=== PATIENT | female | born 1985 | race Caucasian/White ===

== ENCOUNTER 2017-07-20 14:44 | Outpatient (CLI) | payer OTHER ==
--- NOTE | 2017-07-20 16:22 | ULT ---
SOFT TISSUE SONOGRAM LEFT LABIA: FINDINGS: Sonographic evaluation of the left labial abnormality shows a well circumscribed but lobulated heter ogeneous, predominantly hypoechoic mass, measuring up to 4 cm in length x 1.9 cm in width x 1.2 cm i n depth. No invasion of the deep tissues is apparent. IMPRESSION: Left labial lesion does not have a simple cystic appearance, with internal flow and solid components apparent. Neoplasm is a primary concern. Please consider gynecologic consultation. POS: HEIDE
== END 2017-07-20 14:45 | disposition home or self-care (01) ==
LOC: ULT 14:44
PROVIDERS: ATTEND Student in an Organized Health Care Education/Training Program
DX: N75.0 Cyst of Bartholin's gland (principal); N90.9 Noninflammatory disorder of vulva and perineum, unspecified
CPT/HCPCS: 76999

== ENCOUNTER 2017-09-18 18:41 | Day surgery (SDC) | payer OTHER ==
[2017-09-18 19:21] VITALS: BP 123/86; TEMP 98.5; BMI 42.8
[2017-09-18 19:56] LABS: Amnisure Test No Membranes Rupture (No Rupture)
[2017-09-18 19:57] LABS: Amnisure Internal Control QC ACCEPTABLE (ACCEPTABLE)
--- NOTE | 2017-09-18 20:19 | PDOC.LDHP ---
Labor and Delivery H&P Chief complaint: loss of fluid HPI: 32 y/o at 37w3d, patient of Dr. De La Cruz at [facility], presents with ?LOF. She reports a change in her discharge to a more clear color and some itching. Denies VB, ctx, or decreased FM. Patient refuses to have any males in the room and only male attending available for [facility]. ROS neg for HEENT, cv, pulm, gi, gu, neuro, psych, skin, musculoskeletal, or constitutional symptoms other than mentioned above. OB History Details: 2 prior SVDs, 1 at 36 weeks, other at term. Current complications: none Past Medical History: Sinus tachycardia, seen by cardiology Current medications: pre- vitamins Previous surgical history: other (tonsils and adenoids) Allergies/Adverse Reactions: Allergies Allergy/AdvReac Type Severity Reaction Status Date / Time loratadine [From Claritin-D] Allergy Anxiety Verified 09/18/17 19:22 pseudoephedrine Allergy Anxiety Verified 09/18/17 19:22 [From Claritin-D] Social history: none - Physical Exam Vital signs reviewed and normal: yes Abnormal vital signs: tachycardia General: NAD, resting Lungs: nonlabored breathing Abdomen: gravid Extremeties: no edema FHT: category 1 (125, mod variability, + accels, no decels) [place] contractions every: occasional - OB Labs Additional Labs: Amnisure negative - Assessment 32 y/o G1 at 37w3d with no e/o SROM. status reassuring with reactive NST. - Plan -: D/c home with precautions. VP3 pending. Will call if treatment is required.
== END 2017-09-18 20:40 | disposition home or self-care (01) ==
LOC: L&D/OP 18:41
PROVIDERS: ATTEND Student in an Organized Health Care Education/Training Program
DX: O99.89 Other specified diseases and conditions complicating pregnancy, childbirth and the puerperium (principal); N89.8 Other specified noninflammatory disorders of vagina; Z3A.37 37 weeks gestation of pregnancy; Z79.899 Other long term (current) drug therapy; Z88.8 Allergy status to other drugs, medicaments and biological substances; Z90.89 Acquired absence of other organs; Z87.891 Personal history of nicotine dependence
CPT/HCPCS: 84112; 87480; 87510; 87660; 99283

== ENCOUNTER 2017-10-01 12:08 | Day surgery (SDC) | payer OTHER ==
[2017-10-01 12:41] VITALS: BMI 43.4
[2017-10-01] MEDS ORDERED: Acetaminophen 500 MG TAB PO SCH (13:45)
== END 2017-10-01 15:35 | disposition home or self-care (01) ==
LOC: L&D/OP 12:08
PROVIDERS: ATTEND Student in an Organized Health Care Education/Training Program
DX: O99.89 Other specified diseases and conditions complicating pregnancy, childbirth and the puerperium (principal); R03.0 Elevated blood-pressure reading, without diagnosis of hypertension; O36.63X0 Maternal care for excessive fetal growth, third trimester, not applicable or unspecified; Z3A.38 38 weeks gestation of pregnancy; Z79.899 Other long term (current) drug therapy; Z88.8 Allergy status to other drugs, medicaments and biological substances; Z90.89 Acquired absence of other organs; Z87.891 Personal history of nicotine dependence
CPT/HCPCS: 99282

== ENCOUNTER 2017-10-04 10:16 | Inpatient (IN) | payer OTHER ==
[2017-10-04] MEDS ORDERED: PHENYLEPHRINE-NS 100 MCG/ML 10 ML SYRINGE ONE ×3 (10:29→23:30)
[2017-10-04] MEDS ORDERED: Ondansetron HCl/PF 4 MG/2 ML Vial ONE ×2 (10:29→22:41)
[2017-10-04] MEDS ORDERED: Lidocaine 2% MPF 10 ML AMP (For Epidural Use) ONE (10:29)
[2017-10-04 11:05] LABS: Amnisure Test RUPTURE DETECTED (No Rupture)
[2017-10-04 11:06] LABS: Amnisure Internal Control QC ACCEPTABLE (ACCEPTABLE)
[2017-10-04] MEDS ORDERED: Ondansetron HCl/PF 4 MG/2 ML Vial IVP PRN ×4 (11:29→23:48)
[2017-10-04] MEDS ORDERED: Promethazine HCl 25 MG/ML VIAL IM PRN ×3 (11:29→23:48)
[2017-10-04] MEDS: Lactated Ringer's 1,000 ML IV SCH ×3 (11:30→17:16)
[2017-10-04] MEDS ORDERED: Lidocaine 1% (PF) 30 ML VIAL SC PRN (11:32)
[2017-10-04] MEDS ORDERED: LR / Pitocin 40 units/1000 ml 1,000 ML IV PRN (11:32)
[2017-10-04] MEDS ORDERED: Ibuprofen 800 MG TAB PO PRN (11:32)
[2017-10-04 11:39] LABS: Hemoglobin 12.2 g/dL (12.0-16.0); Mean Corpuscular HGB CONC 32.8 g/dL (32.0-36.0); Mean Corpuscular Hemoglobin 29.3 pg (27.0-31.0); Mean Corpuscular Volume 89.4 fl (81.0-99.0); Mean Platelet Volume 8.8 fL (7.4-10.4); Platelet Count 196 thou/uL (130-400); RBC Distribution Width 13.2 % (11.5-14.5); Red Blood Cell (RBC) Count 4.16 mill/uL (4.20-5.40); White Blood Cell (WBC) Count 9.6 thou/uL (4.8-10.8)
[2017-10-04] MEDS ORDERED: Penicillin G Potassium 5 MILL.UNITS VIAL ONE (11:46)
[2017-10-04] MEDS ORDERED: Fentanyl 4 mcg/Marc 0.1% Cadd 100 ML ONE (11:46)
[2017-10-04] MEDS ORDERED: Penicillin G Potassium 5 MILL.UNITS in Sodium Chloride 0.9% 100 ML IVPB SCH (12:15)
[2017-10-04 12:20] LABS: HBSAg Index 0.09 S/CO (0-0.99); Hep B Surf Ag Non-Reactive S/CO (NonReactive)
[2017-10-04 12:21] VITALS: BMI 43.4
[2017-10-04 12:21] LABS: Syphilis Antibody Nonreactive (Nonreactive); Syphilis Antibody Index 0.04 S/CO (<1.00 Non-Reactive)
[2017-10-04] MEDS ORDERED: Lactated Ringer's 500 ML IV PRN (13:41)
[2017-10-04] MEDS ORDERED: Naloxone HCl 0.4 mg/ml Vial IVP PRN ×4 (13:41→23:48)
[2017-10-04] MEDS ORDERED: Acetaminophen 325 MG TAB PO PRN (13:41)
[2017-10-04] MEDS ORDERED: Eucerin (Mineral Oil/Petrolatum,White) 30 gm Jar TOP PRN ×2 (13:41→23:48)
[2017-10-04] MEDS ORDERED: Communication Order-Pharmacy FS SCH ×2 (13:45→23:45)
[2017-10-04] MEDS ORDERED: Fentanyl 4mcg/Marcaine 0.1% Cassette 100 ML EPIDURAL SCH (13:45)
--- NOTE | 2017-10-04 13:58 | PDOC.LDPN ---
Labor & Delivery Progress Note - Subjective Subjective: comfortable - Objective Vital signs reviewed and normal: yes Abnormal vital signs: Tachycardic General: NAD, resting Uterine fundus: non tender SVE: 13:19 Dilation: 3.5 Effacement: 75% (80) Station: -2 FHT: category 1, variability present [place] contractions every: q5min - Assessment (1) Term Code(s): Z34.80 - ENCOUNTER FOR SUPRVSN OF NORMAL , UNSP TRIMESTER Current Visit: Yes Status: Acute Comment: 32 y/o @ 39.0 weeks presents to L&D due to SROM at 06:45 this AM -Expectant management -SVE 3.5/80/-2; no change in dilation from prior exam -Contractions have spread out; pitocin started -Recheck in 2 hours (2) Spontaneous rupture of amniotic membranes Code(s): SMB7965 - Current Visit: Yes Status: Acute Comment: -SROM @ 06: 45 AM Plan: continue plan of care, pitocin for augmentation
[2017-10-04] MEDS ORDERED: LR 500 ML/Oxytocin 10 units 500 ML IV SCH (14:00)
[2017-10-04] MEDS: Penicillin G 2.5 MILL.units 2.5 MILL.UNITS in Premix Bag 1 BAG IVPB SCH ×2 (15:59→20:10)
--- NOTE | 2017-10-04 16:02 | PDOC.LDPN ---
Labor & Delivery Progress Note - Subjective Subjective: comfortable - Objective Vital signs reviewed and normal: yes General: NAD Uterine fundus: tender to palpation SVE: 16:00 Dilation: 7 Effacement: 90% Station: -1 FHT: category 1, variability present [place] contractions every: q2-3 min - Assessment (1) Term Code(s): Z34.80 - ENCOUNTER FOR SUPRVSN OF NORMAL , UNSP TRIMESTER Current Visit: Yes Status: Acute Comment: 32 y/o @ 39.0 weeks presents to L&D due to SROM at 06:45 this AM -Expectant management -SVE /-1 -Pitocin at 6 -Recheck when feeling pressure or q2h (2) Spontaneous rupture of amniotic membranes Code(s): IXB7690 - Current Visit: Yes Status: Acute Comment: -SROM @ 06: 45 AM Plan: continue plan of care
--- NOTE | 2017-10-04 18:39 | PDOC.LDPN ---
Labor & Delivery Progress Note - Subjective Subjective: comfortable - Objective Vital signs reviewed and normal: yes Abnormal vital signs: Tachycardic General: NAD, resting Uterine fundus: non tender SVE: 17:45 Dilation: 9.5 Effacement: 90% Station: -1 FHT: category 1, variability present [place] contractions every: q3 min - Assessment (1) Term Code(s): Z34.80 - ENCOUNTER FOR SUPRVSN OF NORMAL , UNSP TRIMESTER Current Visit: Yes Status: Acute Comment: 32 y/o @ 39.0 weeks presents to L&D due to SROM at 06:45 this AM -Expectant management -SVE 9.5/95/-1 @ 17:45 -Pitocin at 8 -Recheck in 1 hour (2) Spontaneous rupture of amniotic membranes Code(s): SRT6289 - Current Visit: Yes Status: Acute Comment: -SROM @ 06: 45 AM Plan: continue plan of care <Kaylan Galvan - Last Filed: 10/04/17 18:37> Attending Addendum - Attending Addendum I personally evaluated the patient and discussed the management with Dr. Galvan I agree with the History, Examination, Assessment and Plan documented above with any addition or exceptions noted below. Dr. Burton planned to be delivering doctor as patient prefers female provider. <Tejas Mckeon - Last Filed: 10/04/17 18:45>
--- NOTE | 2017-10-04 22:23 | PDOC.LDPN ---
Labor & Delivery Progress Note - Objective Abnormal vital signs: Baseline tachycardia. Vitals otherwise WNL General: NAD Uterine fundus: non tender Station: -1 FHT: category 2, variable decelerations, variability present [place] contractions every: 2-3 min Resuscitative measures: maternal IV fluids - Assessment (1) Arrested labor Code(s): O62.1 - SECONDARY UTERINE INERTIA Status: Acute Comment: Pt pushing for 1.5 hrs without descent past -1 station. Has been at -1 station for 9 hrs despite adequate contractions. Cat II tracing for variable decels with intermittent tachycardia. Appears to be in occiput posterior presentation on bedside ultrasound although examination difficult due to position and maternal body habitus. Decision made to proceed with primary section for arrest of descent and OP presentation. Risk, benefits and alternatives to delivery, including but not limited to risk of bleeding, infection, damage to structures surrounding the uterus and need for hysterectomy for life saving purposes were discussed in detail with patient and . All questions were answered and the both patient and are in agreeance with plan. -Lee DO -: Patient seen with Dr. Burton and will proceed with for arrest of descent and persistent OP position.
[2017-10-04] MEDS ORDERED: Bicitra 30 ML UDCUP ONE ×2 (22:24)
[2017-10-04] MEDS ORDERED: CEFAZOLIN/Water 2 GM/20 ML SYRINGE ONE (22:24)
[2017-10-04] MEDS ORDERED: Lidocaine 2% PF 5 ML VIAL ONE ×2 (22:33→22:53)
[2017-10-04] MEDS ORDERED: Bupivacaine/Epinephrine 0.5% 10 ML VIAL ONE (22:34)
[2017-10-04] MEDS ORDERED: Oxytocin 10 UNITS/ML VIAL ONE (22:41)
[2017-10-04] MEDS ORDERED: Morphine PF 1 MG/ML SYR ONE (23:20)
[2017-10-04] MEDS ORDERED: Ketorolac Tromethamine 30 MG/ML VIAL IVP SCH (23:45)
[2017-10-04] MEDS ORDERED: Meperidine HCl/PF 25 MG/ML VIAL SLOW IVP PRN (23:48)
[2017-10-04] MEDS ORDERED: Naloxone HCl 0.4 mg/ml Vial IV PRN (23:48)
[2017-10-04] MEDS ORDERED: diphenhydrAMINE 50 MG/ML VIAL IVP PRN (23:48)
[2017-10-04] MEDS ORDERED: Promethazine HCl 25 MG SUPP PR PRN (23:48)
[2017-10-04] MEDS ORDERED: HYDROmorphone 2 MG/ML VIAL SLOW IVP PRN (23:48)
[2017-10-05] MEDS ORDERED: Lidocaine 2% PF 5 ML VIAL ONE (00:01)
[2017-10-05] MEDS ORDERED: LR w/ Pitocin 40 units/1000 ML BAG IV SCH (01:57)
[2017-10-05] MEDS ORDERED: Bisacodyl 10 MG SUPP PR PRN (01:57)
[2017-10-05] MEDS ORDERED: Adacel (T-DAP) 0.5 ML VIAL IM ONE (02:15)
[2017-10-05] MEDS ORDERED: Meperidine HCl/PF 25 MG/ML VIAL ONE (02:46)
[2017-10-05 05:40] LABS: Hemoglobin 10.3 g/dL (12.0-16.0); Mean Corpuscular HGB CONC 33.5 g/dL (32.0-36.0); Mean Corpuscular Hemoglobin 30.3 pg (27.0-31.0); Mean Corpuscular Volume 90.5 fl (81.0-99.0); Platelet Count 184 thou/uL (130-400); RBC Distribution Width 13.4 % (11.5-14.5); White Blood Cell (WBC) Count 16.2 thou/uL (4.8-10.8)
--- NOTE | 2017-10-05 07:23 | PDOC.PP ---
Post Progress Note Post Day #: 1 Subjective: Patient doing well this AM. No significant overnight events. Advancing diet as tolerated. Has yet to ambulate. Pain moderately controlled. PO intake tolerated: yes Flatus: no Ambulation: no Vital Signs (12 hours) Temp Pulse Resp BP Pulse Ox 10/05/17 05:50 98.1 F 116 H 20 105/56 L 10/05/17 04:50 98.1 F 118 H 20 109/62 10/05/17 03:50 98.1 F 127 H 20 130/76 10/05/17 03:30 98.1 F 127 H 20 10/05/17 03:20 98.2 F 130 H 20 116/64 96 10/04/17 19:58 97.9 F 98 20 Weight Weight 111.13 kg - Physical Examination General: NAD Cardiovascular: no m/r/g Deviation from normal: Tachycardic 110's Respiratory: clear to auscultation bilaterally, non-labored breathing Abdominal: + bowel sounds, lochia (wnl), no distention, appropriately TTP Fundus firm & at: umbilicus Extremities: negative homans (B) Skin: CS incision dry & intact (New, clean dressing was in place), no rash Neurological: no gross focal deficits Psychiatric: A&Ox3, normal affect Result Diagrams: 10/05/17 05:13 Additional Labs: Post Labs Blood Type AB POSITIVE 10/04/17 11:20 Hep Bs Antigen Non-Reactive S/CO (NonReactive) 10/04/17 11:20 (1) Term delivered Code(s): O80 - ENCOUNTER FOR FULL-TERM UNCOMPLICATED DELIVERY Status: Acute Comment: 32 y/o @ 39.0 weeks delivered MARK M on 10/04/2017 via pLTCS for arrest of descent -Infant in OP position -Patient doing well this AM -Encourage ambulation -Contraception: opting for vasectomy -PCP: Undetermined; will provide patient with list of pediatricians -Routine care -Incision dressing recently placed; clean and dry (2) Arrest of descent, delivered, current hospitalization Code(s): O62.1 - SECONDARY UTERINE INERTIA Status: Acute Comment: - Delivered via pLTCS on 10/04/2017 -Infant in OP position -Uterine extension requiring repair; hemostatic -Incision dressing recently change; clean and dry (3) GBS (group B streptococcus) infection Code(s): A49.1 - STREPTOCOCCAL INFECTION, UNSPECIFIED SITE Status: Acute Comment: -Patient was adequately treated for vaginally delivery, but ended up delivering via pLTCS for failure of descent <Kaylan Galvan - Last Filed: 10/05/17 10:29> Vital Signs (12 hours) Temp Pulse Resp BP Pulse Ox 10/05/17 08:00 99 F 129 H 18 101/49 L 10/05/17 05:50 98.1 F 116 H 20 105/56 L 10/05/17 04:50 98.1 F 118 H 20 109/62 10/05/17 03:50 98.1 F 127 H 20 130/76 10/05/17 03:30 98.1 F 127 H 20 10/05/17 03:20 98.2 F 130 H 20 116/64 96 Weight Weight 111.13 kg Result Diagrams: 10/05/17 05:13 Additional Labs: Post Labs Blood Type AB POSITIVE 10/04/17 11:20 Hep Bs Antigen Non-Reactive S/CO (NonReactive) 10/04/17 11:20 (1) Arrested labor Code(s): O62.1 - SECONDARY UTERINE INERTIA Status: Acute Comment: Pt pushing for 1.5 hrs without descent past -1 station. Has been at -1 station for 9 hrs despite adequate contractions. Cat II tracing for variable decels with intermittent tachycardia. Appears to be in occiput posterior presentation on bedside ultrasound although examination difficult due to position and maternal body habitus. Decision made to proceed with primary section for arrest of descent and OP presentation. Risk, benefits and alternatives to delivery, including but not limited to risk of bleeding, infection, damage to structures surrounding the uterus and need for hysterectomy for life saving purposes were discussed in detail with patient and . All questions were answered and the both patient and are in agreeance with plan. -Lee LOGAN <Lucie Rosa - Last Filed: 10/05/17 12:17> Attending Addendum - Attending Addendum I personally evaluated the patient and discussed the management with Dr. Galvan I agree with the History, Examination, Assessment and Plan documented above with any addition or exceptions noted below- Patient without complaints. Pain controlled. Tolerating ice chips. Afebrile VSS U/O 400 mL since arrival to till am. A/P: 1) POD #1 s/p 1* C/section for FTD- H/H stable; advance diet as tolerated; start ambulation. <Lucie Rosa - Last Filed: 10/05/17 12:17>
[2017-10-05] MEDS: Ketorolac Tromethamine 30 MG/ML VIAL IVP PRN ×2 (07:35→14:10)
--- NOTE | 2017-10-05 08:32 | PDOC.EVN ---
Event Note - Event Note Event Note: Was called that patient had area of her incision that was no longer intact. Upon evaluation, the patient had a one cm region on the left lateral aspect of the incision that was no longer sutured in place. The patient reported that she had felt itchy and been scratching down there, so she was concerned she may have messed it up. The integrity of the wound closure was still intact. I placed steri strips across the open region and put a few extras to reinforce the rest of the incision. I informed the patient that it was important to not mess with the incision. <Awa Dave - Last Filed: 10/05/17 08:32> Attending Addendum - Attending Addendum Discussed with Dr. Dave. No s/s of fascial dehiscence. Patient was scratching the area when it came open. Reassess in AM. <Tejas Mckeon - Last Filed: 10/08/17 09:32>
[2017-10-05] MEDS: Prenatal Vitamin 1 TAB PO SCH (09:17)
[2017-10-05] MEDS: Docusate Calcium (SURFAK) 240 MG CAP PO SCH ×2 (09:17→19:47)
[2017-10-05] MEDS: Ferrous Sulfate 325 MG TAB PO SCH (09:20)
[2017-10-05] MEDS ORDERED: Sodium Chloride 0.9% 10 ML ONE (14:05)
[2017-10-05] MEDS ORDERED: Bupivacaine/Epinephrine 0.25% 30 ML VIAL ONE (16:24)
[2017-10-05] MEDS ORDERED: Lidocaine 2% MPF 10 ML AMP (For Epidural Use) ONE (16:24)
[2017-10-05] MEDS: Ibuprofen 800 MG TAB PO SCH (19:47)
--- NOTE | 2017-10-05 23:43 | OP ---
PREOPERATIVE DIAGNOSES: 1. Intrauterine at 39 weeks' gestation. 2. Arrest of descent. 3. Persistent occiput posterior position. POSTOPERATIVE DIAGNOSES: 1. Intrauterine at 39 weeks' gestation. 2. Arrest of descent. 3. Persistent occiput posterior position. 4. 4 cm right inferolateral hysterotomy extension PROCEDURE: Primary low transverse section via Pfannenstiel skin incision. SURGEON: Diana Burton D.O. ASSISTANTS: Lucie Rosa M.D., Kaylan Galvan DO, Stephanie Khan M.D. ANESTHESIA: Epidural. COMPLICATION: None. ESTIMATED BLOOD LOSS: 1500 mL FLUIDS: 300 mL URINE OUTPUT: 500 mL of clear urine at the end of the procedure. INDICATION: Arrest of descent at -1 station and persistent occiput posterior position. Ms Preciado pushed for 1-1/2 hours without descent past -1 station. On ultrasound, baby was noted to be in the occiput posterior position and decision was made to proceed with primary section. Risks, benefits, and alternatives to delivery, including but not limited to risk of bleeding, infection, pain, damage to structures surrounding the uterus and need for hysterectomy for life-saving purposes only were explained to the patient and her . All questions were answered and patient and were in agreement with the plan to proceed with delivery. FINDINGS: Male infant in occiput posterior presentation delivered at 23:09 on 10/04/2017. APGARS 8/9. Minimal amniotic fluid, weight 3645 grams. Normal uterus, tubes, and ovaries bilaterally. DESCRIPTION OF PROCEDURE: After informed consent was obtained, the patient was taken to the operating room where epidural anesthesia was found to be adequate. She was then prepped and draped in normal sterile fashion in the dorsal supine position with a leftward tilt. A Pfannenstiel skin incision was made with scalpel and carried through to the underlying layer of fascia. The fascia was incised in the midline. The incision was extended laterally using blunt dissection. The superior aspect of the fascial incision was then grasped with Maryjane clamps and the rectus muscles were dissected off bluntly. The inferior aspect of the fascial incision was, in a similar fashion, grasped with Maryjane clamps and the rectus muscles were dissected off bluntly. The rectus muscles were then in the midline and the peritoneum was identified and entered bluntly. This incision was then extended laterally. The bladder blade was inserted and a bladder flap was created using Metzenbaum scissors and blunt dissection. The bladder blade was then readjusted. The lower uterine segment was incised in a transverse fashion with the scalpel. The uterine incision was then bluntly extended. The bladder blade was removed and the 's head was delivered atraumatically. The cord was clamped and cut. was handed off to the waiting pediatrics team. The placenta was then removed manually. The uterus was exteriorized and cleared of all clots and debris. At that time, a 4 cm right inferolateral extension of the hysterotomy was noted. The extension was repaired using 1-0 Monocryl in a running locked fashion. The remainder of the hysterotomy was then closed using the same suture in a running locked fashion. A second layer of the same suture was used to imbricate and obtain hemostasis. Two areas of bleeding were noted at the left lateral hysterotomy edge. Two [id number] stitches were placed using 1-0 Monocryl with hemostasis. The uterus was then returned to the abdomen. The gutters were cleared of all clots and debris. The hysterotomy was again visualized and the area of the hysterotomy extension on the right side was noted to be bleeding. The uterus was again exteriorized and it is noted that the apex of the extension was not incorporated into the repair. This was subsequently repaired using 1-0 Monocryl in a running locked fashion with hemostasis noted. The uterus was returned to the abdomen and the right hysterotomy edge was visualized again and noted to be hemostatic. The muscle was closed using 0 Vicryl in a single mattress stitch. The fascia was closed in a running fashion using 0 Vicryl. The subcuticular tissue was reapproximated using 2-0 plain. The skin was closed with 4-0 Monocryl in a running subcuticular fashion. The patient tolerated the procedure well. Sponge, lap, and needle counts were correct x2. Two grams of Ancef was given prior to the procedure. Fundal massage was performed at the end of the procedure over the lower uterine segment. The patient was taken to recovery room in stable condition. TYLER
[2017-10-06] MEDS: HYDROcodone/Acetaminophen 5/325 mg Tablet PO PRN ×3 (01:56→11:10)
[2017-10-06] MEDS: Ibuprofen 800 MG TAB PO SCH (04:37)
[2017-10-06] MEDS: Ferrous Sulfate 325 MG TAB PO SCH ×2 (05:02→09:15)
[2017-10-06 05:07] VITALS: TEMP 97.8
[2017-10-06 08:15] VITALS: BP 97/64
[2017-10-06] MEDS: Docusate Calcium (SURFAK) 240 MG CAP PO SCH (09:15)
[2017-10-06] MEDS: Prenatal Vitamin 1 TAB PO SCH (09:15)
--- NOTE | 2017-10-06 10:50 | PDOC.PP ---
Post Progress Note Post Day #: 2 Subjective: Patient doing well this AM. Pain moderately controlled on hydrocodone. Patient still endorses pulling sensation and a decent amount of pain when ambulating. Patient tolerating PO. PO intake tolerated: yes Flatus: yes Ambulation: yes Vital Signs (12 hours) Temp Pulse Resp BP BP 10/06/17 08:15 97.8 F 105 H 20 97/64 10/06/17 08:00 97.8 F 105 H 20 10/06/17 04:40 97.8 F 97 20 99/57 L 10/06/17 00:00 98.6 F 113 H 20 108/70 10/05/17 23:20 98.0 F 113 H 20 Weight Weight 111.13 kg - Physical Examination General: NAD Cardiovascular: no m/r/g Deviation from normal: tachycardic Respiratory: clear to auscultation bilaterally, non-labored breathing Abdominal: + bowel sounds, lochia (wnl), no distention, appropriately TTP Extremities: negative homans (B) Skin: CS incision dry & intact (steri strips in place), no rash Neurological: no gross focal deficits Psychiatric: A&Ox3, normal affect Result Diagrams: 10/05/17 05:13 Additional Labs: Post Labs Blood Type AB POSITIVE 10/04/17 11:20 Hep Bs Antigen Non-Reactive S/CO (NonReactive) 10/04/17 11:20 (1) Term delivered Code(s): O80 - ENCOUNTER FOR FULL-TERM UNCOMPLICATED DELIVERY Status: Acute Comment: 32 y/o @ 39.0 weeks delivered MARK Arguello infant on 10/04/2017 via pLTCS for arrest of descent -Patient doing well this AM -Contraception: opting for vasectomy -[employer] for : Dr. Gomez -Routine care -Incision clean, dry and intact -D/C home today per patient request (2) Arrest of descent, delivered, current hospitalization Code(s): O62.1 - SECONDARY UTERINE INERTIA Status: Acute Comment: - Delivered via pLTCS on 10/04/2017 -Uterine extension requiring repair; hemostatic -Incision clean, dry and intact (3) GBS (group B streptococcus) infection Code(s): A49.1 - STREPTOCOCCAL INFECTION, UNSPECIFIED SITE Status: Acute Comment: -Patient was adequately treated for vaginally delivery, but ended up delivering via pLTCS for failure of descent - Assessment/Plan D/C home today <Kaylan Galvan - Last Filed: 10/06/17 10:48> Vital Signs (12 hours) Temp Pulse Resp BP BP 10/06/17 08:15 97.8 F 105 H 20 97/64 10/06/17 08:00 97.8 F 105 H 20 10/06/17 04:40 97.8 F 97 20 99/57 L 10/06/17 00:00 98.6 F 113 H 20 108/70 Weight Weight 111.13 kg Result Diagrams: 10/05/17 05:13 Additional Labs: Post Labs Blood Type AB POSITIVE 10/04/17 11:20 Hep Bs Antigen Non-Reactive S/CO (NonReactive) 10/04/17 11:20 <Jessica Marquez - Last Filed: 10/06/17 11:45> Attending Addendum - Attending Addendum I personally evaluated the patient and discussed the management with Dr. Galvan on 10/06/17. I agree with the History, Examination, Assessment and Plan documented above with any addition or exceptions noted below. Patient's pain well controlled. Is tolerating full PO and ambulating. is going well. Desires to go home today, will discharge home with close follow up. Precautions given at length on returning to care. <Jessica Marquez - Last Filed: 10/06/17 11:45>
== END 2017-10-06 13:10 | disposition home or self-care (01) | DRG 765 ==
LOC: L&D/OP 10:16 → L&D 11:28 → 3SW 10-05 03:43
PROVIDERS: ADMIT Family Medicine; ATTEND Family Medicine
PROC: 10D00Z1 Extraction of Products of Conception, Low, Open Approach (ICD-10-PCS; principal; 2017-10-04)
DX: O99.824 Streptococcus B carrier state complicating childbirth (principal); Z68.41 Body mass index [BMI] 40.0-44.9, adult; O62.1 Secondary uterine inertia; O32.8XX0 Maternal care for other malpresentation of fetus, not applicable or unspecified; O99.214 Obesity complicating childbirth; E66.9 Obesity, unspecified; Z3A.39 39 weeks gestation of pregnancy; Z37.0 Single live birth; O75.89 Other specified complications of labor and delivery; R00.0 Tachycardia, unspecified; K21.9 Gastro-esophageal reflux disease without esophagitis
CPT/HCPCS: 36415; 51702; 84112; 85027; 86780; 87340; 88307; 99285; A4216; J0595; J1885; J2001; J2175; J2274; J2405; J2540; J2590; J3490; J7050; J7120